=== PATIENT | male | born 2000 | race Caucasian/White ===

== ENCOUNTER 2020-10-07 13:51 | Emergency (ER) | payer SELFPAY ==
[~2020-10-07] VITALS: Ht 172.7 cm; Wt 59.0 kg
[2020-10-07 13:51] VITALS: BP 161/67
--- NOTE | 2020-10-07 13:54 | NUR ---
VIVIAN URBINA TAKEN TO CHAIR A
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
--- NOTE | 2020-10-07 14:00 | NUR ---
ERMD ASSESSING PT
[2020-10-07 14:20] VITALS: BP 161/67
--- NOTE | 2020-10-07 14:20 | NUR ---
Patient discharged with v/s stable. Written and verbal after care instructions given and explained. Patient verbalized understanding. Ambulatory with steady gait. All questions addressed prior to discharge. Advised to follow up with PMD.
== END 2020-10-07 14:20 ==
LOC: MED 13:51
DX: F15.10 Other stimulant abuse, uncomplicated (principal); Z02.89 Encounter for other administrative examinations
CPT/HCPCS: 99283

== ENCOUNTER 2021-01-05 16:54 | Emergency (ER) | payer SELFPAY ==
[~2021-01-05] VITALS: Ht 175.3 cm; Wt 67.1 kg
[2021-01-05 17:01] VITALS: BP 102/78
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
--- NOTE | 2021-01-05 17:20 | NUR ---
PATIENT BIB [facility] [employer]. PATIENT EXAMINED BY DR. SANDRA. PATIENT MEDICALLY CLEARED AND RELEASED IN CUSTODY IN STABLE CONDITION. ORIGINAL PRE-BOOK FORM GIVEN TO [place] [employer] OFFICER.
[2021-01-05 17:39] VITALS: BP 102/78
== END 2021-01-05 17:20 ==
LOC: MED 16:54
DX: F10.129 Alcohol abuse with intoxication, unspecified (principal); Z02.89 Encounter for other administrative examinations
CPT/HCPCS: 99283